=== PATIENT | female | born 1960 | race Caucasian/White ===

== ENCOUNTER → 2019-12-27 | Outpatient (CLI) | payer BC ==
[2019-12-27 08:49] LABS: ALBUMIN 4.3 g/dL (3.5-5.0); POTASSIUM 4.4 mmol/L (3.5-5.1)
[2019-12-27 08:50] LABS: CALCIUM 9.8 mg/dL (8.3-10.5)
[2019-12-27 08:51] LABS: TOTAL PROTEIN 7.5 g/dL (6.4-8.3)
[2019-12-27 08:53] LABS: TOTAL BILIRUBIN 0.8 mg/dL (0.2-1.2)
== END ==
LOC: LAB 08:25
PROVIDERS: Internal Medicine
DX: C50.412 Malignant neoplasm of upper-outer quadrant of left female breast (principal)

== ENCOUNTER → 2020-05-02 | Outpatient (CLI) | payer BC ==
[2020-05-02 14:53] LABS: ALBUMIN 4.3 g/dL (3.5-5.0)
[2020-05-02 14:54] LABS: POTASSIUM 4.3 mmol/L (3.5-5.1)
[2020-05-02 14:55] LABS: CALCIUM 9.3 mg/dL (8.3-10.5)
[2020-05-02 14:56] LABS: TOTAL PROTEIN 7.2 g/dL (6.4-8.3)
[2020-05-02 14:58] LABS: TOTAL BILIRUBIN 0.5 mg/dL (0.2-1.2)
== END ==
LOC: LAB 14:27
PROVIDERS: Internal Medicine
DX: C50.919 Malignant neoplasm of unspecified site of unspecified female breast (principal)

== ENCOUNTER 2020-05-22 11:15 | Outpatient (RCR) | payer BC | END 2020-05-22 12:00 | disposition still patient (30) | LOC: PT 11:15 | DX: Z98.890 Other specified postprocedural states (principal) ==

== ENCOUNTER → 2020-10-10 | Outpatient (CLI) | payer OTHER ==
[2020-10-10 11:40] LABS: ALBUMIN 4.1 g/dL (3.5-5.0); POTASSIUM 4.2 mmol/L (3.5-5.1)
[2020-10-10 11:42] LABS: CALCIUM 9.3 mg/dL (8.3-10.5)
[2020-10-10 11:43] LABS: TOTAL PROTEIN 7.4 g/dL (6.4-8.3)
== END ==
LOC: LAB 10:52
PROVIDERS: Internal Medicine
DX: C50.919 Malignant neoplasm of unspecified site of unspecified female breast (principal)

== ENCOUNTER → 2021-04-12 | Outpatient (CLI) | payer OTHER ==
[2021-04-12 09:27] LABS: HEMATOCRIT 43.6 % (37.0-47.0); HEMOGLOBIN 14.4 g/dL (12.5-16.0); MEAN PLATELET VOLUME 9.8 fl (7.4-10.4); RED BLOOD COUNT 4.77 M/mm3 (4.10-5.30); RED CELL DISTRIBUTION WIDTH 12.9 % (11.5-14.5); WHITE BLOOD COUNT 5.5 K/mm3 (4.8-10.8)
[2021-04-12 09:46] LABS: ALBUMIN 4.1 g/dL (3.5-5.0); POTASSIUM 4.5 mmol/L (3.5-5.1)
[2021-04-12 09:47] LABS: CALCIUM 9.6 mg/dL (8.3-10.5)
[2021-04-12 09:49] LABS: TOTAL PROTEIN 7.3 g/dL (6.4-8.3)
[2021-04-12 09:50] LABS: TOTAL BILIRUBIN 0.7 mg/dL (0.2-1.2)
== END ==
LOC: LAB 09:05
PROVIDERS: Internal Medicine
DX: C50.412 Malignant neoplasm of upper-outer quadrant of left female breast (principal)